=== PATIENT | female | born 2000 | race Caucasian/White ===

== ENCOUNTER 2022-06-29 03:48 | Emergency (ER) | payer BC ==
[2022-06-29 03:58] VITALS: BP 118/67; PULSE 85; RESP 17; TEMP 98.1; BMI 24.4
== END 2022-06-29 05:02 | disposition home or self-care (01) ==
LOC: JER 03:48
DX: F10.920 Alcohol use, unspecified with intoxication, uncomplicated (principal)
CPT/HCPCS: 99281-25